=== PATIENT | female | born 1995 | race Caucasian/White ===

== ENCOUNTER 2017-10-01 17:22 | Observation (INO) | payer BC ==
[~2017-10-01] VITALS: Ht 172.7 cm; Wt 98.0 kg
[2017-10-01] MEDS ORDERED: MoRPHine SULFATE 4 MG/ML 1 ML CARP\\VIAL IV STA (17:46)
[2017-10-01] MEDS ORDERED: ONDANSETRON INJ 2 MG/ML 2 ML VIAL IV STA ×2 (17:46)
[2017-10-01] MEDS ORDERED: SODIUM CHLORIDE 0.9% 1000ML 1,000 ML IV STA (17:46)
[2017-10-01] MEDS ORDERED: OPTIRAY 320 IV PRN (18:00)
[2017-10-01] MEDS ORDERED: BCPILLS PO (18:08)
[2017-10-01 18:09] LABS: BASO % 0.1 %; BASO ABS # 0.01 K/uL (0-0.2); EOS ABS # 0.15 K/uL (0-0.5); HEMOGLOBIN 13.6 g/dL (12.0-16.0); IG# 0.01 K/uL (0.00-0.02); LYMPH ABS # 2.11 K/uL (1.2-3.4); MEAN CELL VOLUME 83.3 fL (80-100); MEAN CORPUSCULAR HEMOGLOBIN 29.1 pg (25-34); MEAN CORPUSCULAR HGB CONC 34.9 g/dl (32-36); MEAN PLATELET VOLUME 9.8 fL (7.4-10.4); MONO % 11.3 %; MONO ABS # 0.85 K/uL (0.11-0.59); NEUT % 58.5 %; NEUT ABS # 4.41 K/uL (1.4-6.5); PLATELET COUNT 412 K/uL (130-400); RED CELL DISTRIBUTION WIDTH CV 13.7 % (11.5-14.5); RED CELL DISTRIBUTION WIDTH SD 41.3 fL (36.4-46.3); WHITE BLOOD COUNT 7.54 K/uL (4.8-10.8)
[2017-10-01 18:39] LABS: ALBUMIN 3.5 gm/dl (3.4-5.0); ALKALINE PHOSPHATASE 59 U/L (45-117); ALT/SGPT 18 U/L (12-78); AST/SGOT 15 U/L (15-37); BLOOD UREA NITROGEN 9 mg/dl (7-18); CALCIUM 9.4 mg/dl (8.5-10.1); CARBON DIOXIDE 23 mmol/L (21-32); CREATININE 0.86 mg/dl (0.60-1.20); GLUCOSE 90 mg/dl (70-99); LIPASE 74 U/L (73-393); POTASSIUM 3.6 mmol/L (3.5-5.1); SODIUM 136 mmol/L (136-145); TOTAL PROTEIN 8.2 gm/dl (6.4-8.2)
--- NOTE | 2017-10-01 20:00 | DIAGNOSTIC IMAGING REPORT ---
CT SCAN OF THE ABDOMEN AND PELVIS WITH IV CONTRAST CLINICAL HISTORY: Right lower quadrant abdominal pain. COMPARISON STUDY: No priors. TECHNIQUE: Following the IV administration of 117 cc of Optiray 320, CT scan of the abdomen and pelvis is performed from the lung bases to the proximal femora. Images are reviewed in the axial, sagittal, and coronal planes. IV contrast was administered without complication. A dose lowering technique was utilized adhering to the principles of ALARA. CT DOSE: 514.34 mGy.cm FINDINGS: Lung bases: The heart is normal in size and without pericardial effusion. The lung bases are clear. Liver: The contrast-enhanced liver is mildly enlarged, measuring 18.5 cm in length. The liver demonstrates diffusely diminished attenuation consistent with mild hepatic steatosis. Fatty sparing is seen adjacent to gallbladder fossa. There is no intrahepatic biliary ductal dilatation. The hepatic veins and portal veins are patent. Gallbladder: Unremarkable. Spleen: Normal in size and attenuation. Pancreas: Unremarkable. Adrenal glands: Unremarkable. Kidneys: The contrast enhanced kidneys are normal in size and without hydronephrosis. The kidneys enhance symmetrically. Abdominal vasculature: The abdominal aorta is normal in course and caliber. Bowel: There is mild colonic fecal retention. No bowel obstruction is seen. The appendix is distended and fluid-filled, measuring 9 mm in diameter as seen on axial image #306. The appendiceal wall is mildly thickened. There is periappendiceal inflammation, and the findings are consistent with acute appendicitis. There is no evidence of abscess. Peritoneum: There is no intraperitoneal free air or abdominal ascites. There is a fat-containing umbilical hernia. Lymphadenopathy: None. Pelvic viscera: The bladder, uterus, and adnexa are normal as visualized. There are small bilateral ovarian follicles. There is trace free fluid in the cul-de-sac. Skeletal structures: A large hemangioma is seen within the right transverse process of L5. No lytic or blastic lesions are seen. IMPRESSION: 1. Findings are consistent with mild acute appendicitis. There is no evidence of abscess or perforation. 2. Trace nonspecific free fluid is noted in the cul-de-sac. 3. The liver is mildly enlarged and steatotic. Electronically signed by: Sumeet Ontiveros M.D. 10/01/2017 7:59 PM Dictated Date/Time: 10/01/2017 7:54 PM
[2017-10-01] MEDS ORDERED: BUPIVACAINE/EPINEPHRINE 0.5% MPF 1:200,000 30 ML VIAL ONE (20:25)
[2017-10-01] MEDS ORDERED: LACTATED RINGER'S 1000ML 1,000 ML IV SCH (21:04)
--- NOTE | 2017-10-01 21:04 | History and Physical ---
History & Physical Date Oct 01, 2017. Chief Complaint abdominal pain History of Present Illness The patient is a 21 year old female with complaints of abdominal pain since yesterday. It began diffusely and then located to her RLQ. She has had nausea and vomiting associated with the pain. She has had some loose stools but no fevers, chills or urinary symptoms. A CT scan scan shows acute appendicitis. Past Medical/Surgical History PMHx -negative PSHx -diag laparoscopy with ovarian cyst removal Additional History Hepatic Disease: No Endocrine Disorder: No Kidney Disease: No Hypertension: No Heart Disease: No Bleeding Tendencies: No Infectious Diseases: No Allergies Coded Allergies: No Known Allergies (Unverified , 10/01/17) Home Medications Scheduled Control Pills ( Control Pills), 1 TAB PO DAILY Physical Examination Skin: warm/dry, no rash Eyes: normal inspection, EOMI, sclerae normal ENT: normal ENT inspection Head: normocephalic, atraumatic Neck: supple, no adenopathy, trachea midline Respiratory/Chest: lungs clear, normal breath sounds, no respiratory distress Cardiovascular: regular rate, rhythm, no edema, no murmur Abdomen / GI: normal bowel sounds, + pertinent finding (RLQ tenderness with guarding; decreased BS; no hernias) Back: normal inspection Extremities: normal inspection Genitourinary - Female: external genitalia normal Neurologic/Psych: no motor/sensory deficits, alert, oriented x 3 Diagnosis Acute appendicitis ASA Classification: ASA Class I Plan of Treatment -NPO -IV mefoxin -IV-to OR for lap appendectomy
[2017-10-01] MEDS ORDERED: ACETAMINOPHEN 325 MG TAB PO PRN (21:15)
[2017-10-01] MEDS ORDERED: ALUMINUM/MAGNESIUM/SIMETH (MAALOX MAX) 30 ML UDC PO PRN (21:15)
[2017-10-01] MEDS ORDERED: MoRPHine SULFATE 2 MG/ML CARP IV PRN (21:15)
[2017-10-01] MEDS ORDERED: ZOLPIDEM TARTRATE 5 MG TAB PO PRN (21:15)
[2017-10-01] MEDS ORDERED: ONDANSETRON INJ 2 MG/ML 2 ML VIAL IV PRN ×2 (21:15→23:00)
[2017-10-01] MEDS ORDERED: MIDAZOLAM HCL 1 MG/ML 2ML VIAL ONE (21:42)
[2017-10-01] MEDS ORDERED: FENTANYL CITRATE INJ 50 MCG/1 ML 2 ML VIAL ONE ×2 (21:43)
[2017-10-01] MEDS ORDERED: ROCURONIUM BROMIDE 10 MG/ML 5 ML VIAL ONE (22:23)
[2017-10-01] MEDS ORDERED: LIDOCAINE HCL 2% 2 ML VIAL (20MG/ML) ONE (22:23)
[2017-10-01] MEDS ORDERED: PROPOFOL IV EMULSION 10 MG/ML 20 ML VIAL ONE (22:23)
[2017-10-01] MEDS ORDERED: DEXAMETHASONE SOD INJ 4 MG/ML VIAL ONE (22:24)
[2017-10-01] MEDS ORDERED: CEFOXITIN SOD 1 GM VIAL ONE (22:24)
[2017-10-01] MEDS ORDERED: GLYCOPYRROLATE INJ 0.2 MG/ML VIAL ONE (22:24)
[2017-10-01] MEDS ORDERED: ONDANSETRON INJ 2 MG/ML 2 ML VIAL ONE (22:24)
[2017-10-01] MEDS ORDERED: NEOSTIGMINE METHYLSULFATE 5 MG/5 ML SYR ONE (22:24)
--- NOTE | 2017-10-01 22:35 | [facility] Post Operative Brief Note ---
Immediate Operative Summary Operative Date Oct 01, 2017. Pre-Operative Diagnosis Acute Appendicitis Post-Operative Diagnosis Acute Appendicitis Procedure(s) Performed Laparoscopic Appendectomy Surgeon Dr. Ahn [facility] Supervisor Surgeon(s) None Estimated Blood Loss 10cc Findings Consistent with Post-Op Diagnosis Specimens A. Appendix Drains None Anesthesia Type General Complication(s) none Disposition Accompanied Pt To Recover: no Disposition: Recovery Room / PACU
--- NOTE | 2017-10-01 22:52 | Anesthesiology Progress Note ---
Anesthesia Post Op Note Date & Time Oct 01, 2017 at 22:52 Vital Signs Pain Intensity: 4.0 Vital Signs Past 12 Hours Date Time Temp Pulse Resp B/P (MAP) Pulse Ox O2 Delivery O2 Flow Rate FiO2 10/01/17 20:46 37.1 91 16 115/78 98 10/01/17 20:08 91 16 115/78 98 Room Air 10/01/17 17:32 37.1 108 18 125/79 99 Room Air Notes Mental Status: alert / awake / arousable, participated in evaluation Pt Amnestic to Procedure: Yes Nausea / Vomiting: adequately controlled Pain: adequately controlled Airway Patency, RR, SpO2: stable & adequate BP & HR: stable & adequate Hydration State: stable & adequate Anesthetic Complications: no major complications apparent
[2017-10-01] MEDS ORDERED: ATROPINE SULFATE 0.1 MG/ML 5ML SYR IV PRN (23:00)
[2017-10-01] MEDS ORDERED: FENTANYL CITRATE INJ 50 MCG/1 ML 2 ML VIAL IV PRN (23:00)
[2017-10-01] MEDS ORDERED: EpHEDrine SULFATE INJ 50 MG/ML AMP IV PRN (23:00)
[2017-10-01 23:30] VITALS: O2SAT 93; Ht 172.7 cm; Wt 98.0 kg
[2017-10-01] MEDS ORDERED: IV FLUIDS COMPLETED PRN (23:30)
[2017-10-01 23:57] VITALS: BP 122/83; PULSE 81; TEMP 36.8; O2SAT 96
[2017-10-02 00:29] VITALS: BP 122/79; PULSE 71; TEMP 36.6; O2SAT 98
[2017-10-02] MEDS: OXYCODONE/ACETAMINOPHEN 5-325 TAB PO PRN ×2 (01:12→08:05)
[2017-10-02 01:30] VITALS: BP 117/74; PULSE 67; TEMP 37; O2SAT 96
[2017-10-02 02:30] VITALS: BP 112/71; PULSE 80; TEMP 37; O2SAT 96
--- NOTE | 2017-10-02 03:24 | EMERGENCY ROOM VISIT NOTE ---
ED Visit Note First contact with patient: 17:36 Chief Complaint: Abdominal pain. History of Present Illness: Ms. Fernández is a 21 year-old white female who ambulates into the ED accompanied by male friend complaining of right lower quadrant abdominal pain. Historically patient reports she had an exploratory laparoscopy for an ovarian cyst removal many years ago. She denies significant gastrointestinal diseases and abdominal surgeries. Patient reports she has been feeling well over the last few days. She reports yesterday she came home from school and took a nap. When she woke up at 3 PM in the afternoon yesterday she started noticing diffuse what she described as stomach pain. At that time the patient was mild but constant. She then reports she went to bed and when she awoke this morning the patient had focalized into the right lower quadrant and intensified. Currently she describes her pain as a deep achy sensation. She rates her discomfort 5/10. Her pain is nonradiating. Her pain worsens with palpation. She has not identified any alleviating factors related to the pain. She has not taken any medications for pain prior to arrival at the hospital. Associated with her pain she reports that she has been nauseated and had 1-2 episodes of vomiting, she has had 4 episodes of watery stools and she has had a decreased appetite. Patient denies fevers, chills, sweats, skin eruptions, skin color changes, upper respiratory tract symptoms, shortness of breath, chest pain, rectal bleeding, black/tarry stools, urinary symptoms, hematuria, vaginal bleeding, vaginal discharge, back/flank pain. Review of Systems: As noted above in history of present illness. All body systems were reviewed and found to be negative as noted above. Past Medical History: As previously noted. Current Medications: control. Allergies to Medications: Patient denies. Social History: Patient feels safe in her home environment; she denies tobacco use. Physical Examination: Vital Signs: Date Time Temp Pulse Resp B/P (MAP) Pulse Ox O2 Delivery O2 Flow Rate FiO2 10/01/17 20:46 37.1 91 16 115/78 98 10/01/17 20:08 91 16 115/78 98 Room Air 10/01/17 17:32 37.1 108 18 125/79 99 Room Air GENERAL: 21-year-old female in mild distress due to pain, nontoxic-appearing, afebrile and hemodynamically stable. NEUROLOGICAL: Awake, alert and oriented to person, place and time. Answering questions appropriately and following commands. Normal gait. Good hand eye coordination. SKIN: Warm, dry and pink. No soft tissue eruptions or trauma noted. HEENT: Atraumatic and normocephalic. PERRLA. Sclera white and conjunctiva pink. Oral cavity moist and pink. Pharynx is nonerythematous or edematous. Speech normal. No lymphadenopathy. Trachea midline. No jugular venous distention. BACK: No tenderness over the bony spine. No CVA tenderness. THORAX: Lungs sounds are clear to auscultation and equal bilaterally with symmetrical chest wall. No wheezing, rales or rhonchi. No crepitus, tenderness , subcutaneous air or deformities noted. HEART: Regular rate and rhythm. No gallops, rubs or murmurs are appreciated. ABDOMEN: Flat and soft with moderate tenderness and guarding in the right lower quadrant over McBurney's point. Positive bowel sounds in all quadrants. No guarding, rigidity or organomegaly. EXTREMITIES: Moves all extremities well on command and with purpose. All distal neurovascular statuses are intact and equal bilaterally. ED Course: Patient is assessed as noted above. Patient's medication list was reviewed. Laboratory Testing: Test 10/01/17 17:59 Range/Units White Blood Count 7.54 4.8-10.8 K/uL Red Blood Count 4.68 4.2-5.4 M/uL Hemoglobin 13.6 12.0-16.0 g/dL Hematocrit 39.0 37-47 % Mean Corpuscular Volume 83.3 80-100 fL Mean Corpuscular Hemoglobin 29.1 25-34 pg Mean Corpuscular Hemoglobin Concent 34.9 32-36 g/dl Platelet Count 412 130-400 K/uL Mean Platelet Volume 9.8 7.4-10.4 fL Neutrophils (%) (Auto) 58.5 % Lymphocytes (%) (Auto) 28.0 % Monocytes (%) (Auto) 11.3 % Eosinophils (%) (Auto) 2.0 % Basophils (%) (Auto) 0.1 % Neutrophils # (Auto) 4.41 1.4-6.5 K/uL Lymphocytes # (Auto) 2.11 1.2-3.4 K/uL Monocytes # (Auto) 0.85 0.11-0.59 K/uL Eosinophils # (Auto) 0.15 0-0.5 K/uL Basophils # (Auto) 0.01 0-0.2 K/uL RDW Standard Deviation 41.3 36.4-46.3 fL RDW Coefficient of Variation 13.7 11.5-14.5 % Immature Granulocyte % (Auto) 0.1 % Immature Granulocyte # (Auto) 0.01 0.00-0.02 K/uL Urine Color YELLOW Urine Appearance CLEAR CLEAR Urine pH 5.0 4.5-7.5 Urine Specific [place] 1.016 1.000-1.030 Urine Protein NEG NEG Urine Glucose (UA) NEG NEG Urine Ketones NEG NEG Urine Occult Blood NEG NEG Urine Nitrite NEG NEG Urine Bilirubin NEG NEG Urine Urobilinogen NEG NEG Urine Leukocyte Esterase NEG NEG Urine Test NEG NEG Sodium Level 136 136-145 mmol/L Potassium Level 3.6 3.5-5.1 mmol/L Chloride Level 105 98-107 mmol/L Carbon Dioxide Level 23 21-32 mmol/L Anion Gap 8.0 3-11 mmol/L Blood Urea Nitrogen 9 7-18 mg/dl Creatinine 0.86 0.60-1.20 mg/dl Est Creatinine Clear Calc Drug Dose 127.0 ml/min Estimated GFR () 112.7 Estimated GFR (Non- 97.3 BUN/Creatinine Ratio 10.9 10-20 Random Glucose 90 70-99 mg/dl Calcium Level 9.4 8.5-10.1 mg/dl Total Bilirubin 0.3 0.2-1 mg/dl Direct Bilirubin < 0.1 0-0.2 mg/dl Aspartate Amino Transf (AST/SGOT) 15 15-37 U/L Alanine Aminotransferase (ALT/SGPT) 18 12-78 U/L Alkaline Phosphatase 59 45-117 U/L Total Protein 8.2 6.4-8.2 gm/dl Albumin 3.5 3.4-5.0 gm/dl Lipase 74 73-393 U/L IV Contrast Abdominal/Pelvic CT: Was reviewed by myself and read by the radiologist and shows a distended fluid-filled appendix measuring approximately 9 mm in diameter. Appendix wall is mildly thickening and there is keke- appendical inflammation findings consistent with an acute appendicitis. No abscess or perforation was noted. Patient was hydrated with normal saline and she received 4 mg of morphine IV for pain and 4 mg of Zofran IV. Patient was reassessed multiple times during her stay in the emergency department. Patient's case was reviewed with Dr. Ahn, general surgery for surgical evaluation and care. Patient was educated about today's findings. Clinical Impression: Acute appendicitis. Decision-Making: Initially my differential diagnosis I considered ectopic , ovarian cyst rupture, ovarian torsion, acute appendicitis, constipation, kidney stone, and other causes. Disposition and Plan: Patient be taken to the operating room for surgical evaluation and care; please see Dr. Ahn's notes and orders for final disposition and plan.
[2017-10-02] MEDS ORDERED: NURSING VERBAL MED ORDER ONE (04:45)
--- NOTE | 2017-10-02 04:53 | OPERATIVE REPORT ---
DATE OF OPERATION: 10/01/2017 PREOPERATIVE DIAGNOSIS: Acute appendicitis. POSTOPERATIVE DIAGNOSIS: Acute appendicitis. PROCEDURE PERFORMED: Laparoscopic appendectomy. SURGEON: Dr. Brennen Ahn. STRATEGIC CLIENT EXECUTIVE: None. ANESTHESIA: General endotracheal with 0.5% Marcaine with epinephrine local. ESTIMATED BLOOD LOSS: 10 mL. DRAINS: None. SPECIMENS: Appendix sent to pathology. COMPLICATIONS: None. INDICATION FOR PROCEDURE: This is a 21-year-old female who presented to the ED with a day history of some abdominal pain which began diffusely and located in the right lower quadrant. She underwent a CT scan which showed acute appendicitis. On exam, she had peritoneal signs with guarding. We discussed the options and recommended laparoscopic appendectomy. We went over the risks of an open procedure, abscess requiring drainage or reoperation, bleeding, wound problems and postoperative ileus. She understood this all and elected to proceed with the operation. DESCRIPTION OF PROCEDURE: The patient was taken to the OR and underwent excellent general endotracheal anesthesia. Abdomen was prepped and draped in normal sterile fashion. She got 2 grams of Mefoxin perioperatively. A transverse supraumbilical incision was made and with tension on the anterior abdominal wall, Veress needle was inserted. Good pneumoperitoneum was achieved to 15 mmHg pressure. An 11 visualized port was placed in her supraumbilical area. Good diagnostic lap performed. Her appendix was seen, it was obviously inflamed. A 5 suprapubic, a 5 right upper quadrant and a 12 left lower quadrant port placed in normal fashion. The patient was then placed in head down and rolled to the left. The right upper quadrant port was used for an atraumatic grasper to put tension on the cecum. The tip of the appendix was identified and put on tension too. Harmonic scalpel was then used to take down her mesoappendix with minimal bleeding. A AKI hope load was then used to transect her appendix at the base. The appendix was brought out with an Endobag and sent for pathologic evaluation. Pneumoperitoneum was reestablished and the abdomen was irrigated out with about 600 mL of saline. There is a little bit of bleeding on the staple line, but by the end of the case, there was no active bleeding. Terminal ileum appeared to be normal. Both ovaries were also normal. No abnormalities were noted except for some adhesions in the right upper quadrant. Ports were then removed and pneumoperitoneum was decompressed. A 0.5% Marcaine with epinephrine local was used to create a local field block. 0 Vicryl was used to close the fascial defect at 11 and 12 incisions. A 4-0 Vicryl was used to close the skin. Steri-Strips and benzoin were used to reinforce the incision. Sterile dressings were applied. The patient tolerated the procedure well without complications, sent to postop recovery for a period of observation and be sent to the floor for her care. I attest to the content of the Intraoperative Record and any orders documented therein. Any exception s are noted below.
[2017-10-02] MEDS ORDERED: CEFOXITIN IV 2,000 MG in DEXTROSE 5% 50ML 50 ML IV SCH (06:00)
[2017-10-02 07:42] VITALS: BP 116/81; PULSE 60; TEMP 36.6; O2SAT 97
[2017-10-02 08:16] VITALS: O2SAT 97
--- NOTE | 2017-10-02 09:24 | Surgery Progress Note ---
Surgery Progress Note Date of Service Oct 02, 2017. Subjective Post OP Day: 1 + feeling well, + flatus, + diet (clears), No complaints, No vomiting Objective Vital Signs: Date Time Temp Pulse Resp B/P (MAP) Pulse Ox O2 Delivery O2 Flow Rate FiO2 10/02/17 08:17 Room Air 10/02/17 08:16 97 Room Air 10/02/17 07:42 36.6 60 20 116/81 (93) 97 Room Air 10/02/17 02:30 37.0 80 16 112/71 (85) 96 Room Air 10/02/17 01:30 37.0 67 16 117/74 (88) 96 Room Air 10/02/17 00:40 Room Air 10/02/17 00:29 36.6 71 16 122/79 (93) 98 Room Air 10/01/17 23:57 36.8 81 16 122/83 (96) 96 Room Air 10/01/17 23:30 93 Room Air 10/01/17 23:25 37.0 83 18 126/70 95 10/01/17 23:15 83 18 127/69 98 Room Air 10/01/17 23:05 77 18 115/94 98 Room Air 9 10/01/17 22:55 36.5 82 16 136/91 98 Room Air 12 10/01/17 20:46 37.1 91 16 115/78 98 10/01/17 20:08 91 16 115/78 98 Room Air 10/01/17 17:32 37.1 108 18 125/79 99 Room Air General Appearance: WD/WN, no apparent distress Head: normocephalic, atraumatic Neck: supple Respiratory/Chest: lungs clear Cardiovascular: regular rate, rhythm, no edema, no gallop, no murmur Abdomen: normal bowel sounds, non distended, soft, + tenderness (mild) Incision(s): dry, intact Extremities: non-tender, no pedal edema Laboratory Results: Results Past 24 Hours Test 10/01/17 17:59 Range/Units White Blood Count 7.54 4.8-10.8 K/uL Red Blood Count 4.68 4.2-5.4 M/uL Hemoglobin 13.6 12.0-16.0 g/dL Hematocrit 39.0 37-47 % Mean Corpuscular Volume 83.3 80-100 fL Mean Corpuscular Hemoglobin 29.1 25-34 pg Mean Corpuscular Hemoglobin Concent 34.9 32-36 g/dl Platelet Count 412 130-400 K/uL Mean Platelet Volume 9.8 7.4-10.4 fL Neutrophils (%) (Auto) 58.5 % Lymphocytes (%) (Auto) 28.0 % Monocytes (%) (Auto) 11.3 % Eosinophils (%) (Auto) 2.0 % Basophils (%) (Auto) 0.1 % Neutrophils # (Auto) 4.41 1.4-6.5 K/uL Lymphocytes # (Auto) 2.11 1.2-3.4 K/uL Monocytes # (Auto) 0.85 0.11-0.59 K/uL Eosinophils # (Auto) 0.15 0-0.5 K/uL Basophils # (Auto) 0.01 0-0.2 K/uL RDW Standard Deviation 41.3 36.4-46.3 fL RDW Coefficient of Variation 13.7 11.5-14.5 % Immature Granulocyte % (Auto) 0.1 % Immature Granulocyte # (Auto) 0.01 0.00-0.02 K/uL Urine Color YELLOW Urine Appearance CLEAR CLEAR Urine pH 5.0 4.5-7.5 Urine Specific [place] 1.016 1.000-1.030 Urine Protein NEG NEG Urine Glucose (UA) NEG NEG Urine Ketones NEG NEG Urine Occult Blood NEG NEG Urine Nitrite NEG NEG Urine Bilirubin NEG NEG Urine Urobilinogen NEG NEG Urine Leukocyte Esterase NEG NEG Urine Test NEG NEG Sodium Level 136 136-145 mmol/L Potassium Level 3.6 3.5-5.1 mmol/L Chloride Level 105 98-107 mmol/L Carbon Dioxide Level 23 21-32 mmol/L Anion Gap 8.0 3-11 mmol/L Blood Urea Nitrogen 9 7-18 mg/dl Creatinine 0.86 0.60-1.20 mg/dl Est Creatinine Clear Calc Drug Dose 127.0 ml/min Estimated GFR () 112.7 Estimated GFR (Non- 97.3 BUN/Creatinine Ratio 10.9 10-20 Random Glucose 90 70-99 mg/dl Calcium Level 9.4 8.5-10.1 mg/dl Total Bilirubin 0.3 0.2-1 mg/dl Direct Bilirubin < 0.1 0-0.2 mg/dl Aspartate Amino Transf (AST/SGOT) 15 15-37 U/L Alanine Aminotransferase (ALT/SGPT) 18 12-78 U/L Alkaline Phosphatase 59 45-117 U/L Total Protein 8.2 6.4-8.2 gm/dl Albumin 3.5 3.4-5.0 gm/dl Lipase 74 73-393 U/L Assessment & Plan acute [id number] -doing well -regular diet for lunch -discharge
[2017-10-02] MEDS ORDERED: OXYC-57 PO (09:25)
--- NOTE | 2017-10-02 09:28 | Discharge Instructions ---
Discharge Instructions Date of Service Oct 02, 2017. Admission Reason for Admission: Acute Appendicitis Discharge Discharge Diagnosis / Problem: acute appendicitris Discharge Goals Goal(s): Therapeutic intervention Activity Recommendations Activity Limitations: per Instructions/Follow-up section Lifting Limitations: no more than 25 pounds Exercise/Sports Limitations: gradually increase as tolerated May Resume Sexual Activity: when tolerated Shower/Bathe: no limitations Driving or Machine Use: resume 3 days after discharge . Instructions / Follow-Up Instructions / Follow-Up Jimy; 2 weeks; [id number] Current Hospital Diet Patient's current hospital diet: Regular Diet Discharge Diet Recommended Diet: Regular Diet Procedures Procedures Performed: Laparoscopic Appendectomy Pending Studies Studies pending at discharge: no Work Instructions Return To Work: after follow-up Additional Instructions: no strenuous activity as above School Instructions Return To School: 3 days Medical Emergencies . Who to Call and When: Medical Emergencies: If at any time you feel your situation is an emergency, please call 911 immediately. . Non-Emergent Contact Non-Emergency issues call your: Primary Care Provider, Surgeon Call Non-Emergent contact if: temperature is above 101.5, your pain is not controlled, your pain is worsening, your pain is unusual for you, your pain is concerning you, wound has increased redness, wound has increased pain, you have any medication questions . "Provider Documentation" section prepared by Brennen Ahn. . [place] Drug Monitoring Program Search Results: patient reviewed within database
[2017-10-02 12:02] VITALS: BP 116/81; PULSE 60; TEMP 36.6; O2SAT 97
--- NOTE | 2017-10-02 18:07 | DISCHARGE SUMMARY ---
DIAGNOSIS: Acute appendicitis. ATTENDING PHYSICIAN: Dr. Brennen Ahn. PROCEDURES PERFORMED: Laparoscopic appendectomy on 10/01/2017. HISTORY OF PRESENT ILLNESS: This is a 21-year-old admitted through the ED with acute abdominal pain. A CT scan was consistent with appendicitis. Plan on admitting her with IV antibiotics, IV fluids and take her to the OR for laparoscopic appendectomy. HOSPITAL COURSE: The patient was admitted, taken to the OR and underwent uncomplicated laparoscopic appendectomy. She did well postop. Her diet was advanced. She tolerated good pain control and she was discharged home on postoperative day #1. DISCHARGE MEDICATIONS: control pills 1 p.o. daily, Percocet 5/325 one tablet p.o. q. 6 hours p.r.n. pain, 14 tablets. DIET: Regular as tolerated. ACTIVITIES: No strenuous activity for 2 weeks. Follow up 2 weeks in my office.
== END 2017-10-02 13:00 | disposition home or self-care (01) ==
LOC: C.EDB 17:24 → C.MSW 21:08 → ENRESERV 22:34
PROVIDERS: ADMIT Surgery; ATTEND Surgery
DX: K35.80 Unspecified acute appendicitis (principal); Z79.3 Long term (current) use of hormonal contraceptives; E66.9 Obesity, unspecified